=== PATIENT | female | born 1985 | race Two or more races ===

== ENCOUNTER 2024-10-29 13:06 | Emergency (ER) | payer OTHER ==
[~2024-10-29] VITALS: Ht 152.4 cm; Wt 56.2 kg
[2024-10-29] MEDS ORDERED: SYNTHROID88 MCG PO (13:16)
[2024-10-29] MEDS ORDERED: ELVITEG/COB/EMTRI/TENOFO DISOP 1 UDTAB TABLET PO ONE (14:15)
== END 2024-10-29 14:42 | disposition home or self-care (01) ==
LOC: ER 13:06
DX: S61.248A Puncture wound with foreign body of other finger without damage to nail, initial encounter (principal); Y93.F9 Activity, other caregiving; Y92.234 Operating room of hospital as the place of occurrence of the external cause

== ENCOUNTER 2024-12-12 16:30 | Outpatient (CLI) | payer OTHER ==
[~2024-12-12 16:30] MED LIST: SYNTHROID88 MCG PO
== END 2024-12-12 16:48 | disposition home or self-care (01) ==
LOC: RAD 16:30
DX: Z02.79 Encounter for issue of other medical certificate (principal); Z01.89 Encounter for other specified special examinations